=== PATIENT | female | born 1950 | race Caucasian/White ===

== ENCOUNTER → 2023-08-23 01:01 | Outpatient (REF) | payer MEDICARE, SELFPAY ==
[2023-08-23 10:58] LABS: Hematocrit 39.1 % (37.0-47.0); Hemoglobin 13.2 g/dL (12.0-16.0); Mean Corp Hgb Conc. 33.8 g/dL (33.0-37.0); Mean Corpuscular Hgb 31.7 pg (27.0-31.0); Mean Platelet Volume 9.4 fL (7.4-10.4); Platelet Count 228 10^3/uL (130-400); Red Blood Cell Count 4.16 10^6/uL (4.20-5.40); Red Cell Dist. Width 13.3 % (11.5-14.5); White Blood Cell Count 5.8 10^3/uL (4.8-10.8)
[2023-08-23 11:19] LABS: INR 0.95; PT 12.9 Sec (11.4-14.6)
[2023-08-23 11:47] LABS: ALT (SGPT) 10 U/L (0-35); AST (SGOT) 21 U/L (14-36); Albumin 4.4 g/dl (3.5-5.0); Alkaline Phosphatase 56 U/L (38-126); Blood Urea Nitrogen 16 mg/dl (7-17); Calcium 9.3 mg/dl (8.4-10.2); Carbon Dioxide 27 mmol/L (22-30); Chloride 101 mmol/L (98-107); Glomerular Filtration Rate > 60.0; Glucose 89 mg/dl (70-99); Potassium 4.6 mmol/L (3.5-5.1); Sodium 137 mmol/L (135-145); Total Bilirubin 0.6 mg/dl (0.2-1.3); Total Protein 7.3 g/dl (6.3-8.2)
[2023-08-23 11:52] LABS: Glycohemoglobin (HgbA1c) 5.6 % (4.0-5.6)
[2023-08-23 12:49] VITALS: BMI 22.5
== END ==
LOC: SDSPAT 01:01
PROVIDERS: ATTENDING PHYSICIAN Surgery; FAMILY PHYSICIAN Internal Medicine
DX: Z93.3 Colostomy status (principal); Z87.19 Personal history of other diseases of the digestive system
CPT/HCPCS: 36415; 80053; 83036; 85027; 85610; 85730; 86850; 86900; 86901; 93005

== ENCOUNTER 2024-07-24 06:16 | Day surgery (SDC) | payer MEDICARE, SELFPAY ==
[2024-07-24 08:09] VITALS: BMI 21.9
[2024-07-24 08:11] VITALS: BMI 21.9
[2024-07-24 08:12] VITALS: BP 129/70
[2024-07-24 12:02] VITALS: BP 105/76
[2024-07-24 12:15] VITALS: BP 127/89
[2024-07-24 12:30] VITALS: BP 122/77
== END 2024-07-24 12:45 | disposition home or self-care (01) ==
LOC: GI 06:16
PROVIDERS: ATTENDING PHYSICIAN Internal Medicine Gastroenterology
DX: Z12.11 Encounter for screening for malignant neoplasm of colon (principal); D12.2 Benign neoplasm of ascending colon; D12.4 Benign neoplasm of descending colon; K63.5 Polyp of colon; K57.30 Diverticulosis of large intestine without perforation or abscess without bleeding; K64.0 First degree hemorrhoids; Z86.010 Personal history of colon polyps; Z98.890 Other specified postprocedural states; Z98.0 Intestinal bypass and anastomosis status
CPT/HCPCS: 45385; 45380; 88305

== ENCOUNTER 2025-08-28 06:16 | Day surgery (SDC) | payer MEDICARE, SELFPAY | END 2025-08-28 09:23 | disposition home or self-care (01) | LOC: GI 06:16 | PROVIDERS: ATTENDING PHYSICIAN Surgery | DX: Z12.11 Encounter for screening for malignant neoplasm of colon (principal); D12.3 Benign neoplasm of transverse colon; K57.30 Diverticulosis of large intestine without perforation or abscess without bleeding; Z86.0100 Personal history of colon polyps, unspecified; Z98.0 Intestinal bypass and anastomosis status | CPT/HCPCS: 45380; 88305 ==